=== PATIENT | female | born 1970 | race Hispanic/Latino ===

== ENCOUNTER 2017-03-17 23:51 | Observation (INO) | payer SELFPAY ==
[2017-03-18] MEDS ORDERED: Ondansetron HCl/PF 4 MG/2 ML Vial ONE ×2 (00:05→11:36)
[2017-03-18] MEDS ORDERED: Ketorolac Tromethamine 30 MG/ML VIAL ONE (00:05)
[2017-03-18 00:14] LABS: Bilirubin Small (Negative); Glucose, Urine (Dipstick) Negative (Negative); Ketone, Urine 40 mg/dL (Negative)
[2017-03-18 00:15] LABS: Blood, Urine Trace (Negative); Nitrite Negative (Negative); Protein, Urine (Dipstick) 30 mg/dL (Neg-Trace)
[2017-03-18 00:29] LABS: Bacteria/HPF Rare-Few HPF (None Seen); Hyaline Casts/LPF 4-6 HYALINE CAST LPF (0-3 Hyaline)
[2017-03-18 00:55] LABS: ALT (SGPT) 55 U/L (8-55); AST (SGOT) 33 U/L (5-34); Alkaline Phosphatase 116 U/L (40-150); Anion Gap 15 mmol/L (10-20); BUN (Urea Nitrogen) 16 mg/dL (7.0-18.7); Bilirubin, Total 0.6 mg/dL (0.2-1.2); Calc. Creatinine Clearance 0 mL/min (70-130); Carbon Dioxide 21 mmol/L (22-29); Chloride 105 mmol/L (98-107); Estimated GFR-MDRD 83; Globulin 3.6 g/dL (2.4-3.5); Lipase 14 U/L (8-78); Protein, Total 7.3 g/dL (6.0-8.3)
[2017-03-18 00:58] LABS: Renal Epithelial None Seen HPF (0-3); Transitional Epithelial NONE SEEN HPF (0-3); Yeast-All Forms None Seen HPF (None Seen)
[2017-03-18 00:59] LABS: Oval Fat Bodies/HPF None Seen HPF (None Seen); Sperm/HPF None Seen HPF (None Seen); Trichomonas/HPF None Seen HPF (None Seen)
[2017-03-18] MEDS ORDERED: Meropenem 1 GM in Sodium Chloride 0.9% 100 ML IVPB SCH (01:00)
[2017-03-18 01:07] LABS: #Eosinphils 0.2 thou/uL (0.0-0.7); #Lymphocytes 1.5 thou/uL (1.20-3.40); #Monocytes 0.7 thou/uL (0.11-0.59); #Neutrophils 9.9 thou/uL (1.40-6.50); %Basophils 0.1 % (0.0-1.0); %Eosinophils 1.4 % (0.0-10.0); %Lymphocytes 12.5 % (21.0-51.0); %Monocytes 5.4 % (0.0-10.0); Hematocrit 34.4 % (36.0-47.0); Red Blood Cell (RBC) Count 3.93 mill/uL (4.20-5.40); White Blood Cell (WBC) Count 12.3 thou/uL (4.8-10.8)
[2017-03-18] MEDS ORDERED: Ondansetron HCl/PF 4 MG/2 ML Vial IVP PRN ×3 (02:01→13:10)
[2017-03-18] MEDS ORDERED: Sodium Chloride 0.9% 1,000 ML IV SCH ×3 (02:01→13:10)
[2017-03-18 02:18] VITALS: BMI 34.4
[2017-03-18] MEDS ORDERED: Ketorolac Tromethamine 30 MG/ML VIAL IVP PRN ×2 (02:39→13:10)
[2017-03-18] MEDS ORDERED: Ketorolac Tromethamine 30 MG/ML VIAL IVP SCH (06:00)
--- NOTE | 2017-03-18 08:04 | HP ---
CHIEF COMPLAINT: Lower abdominal pain. HISTORY OF PRESENT ILLNESS: This is a 47-year-old female who presents with pain which is d escribed as sharp and severe in the lower abdomen, right lower quadrant, started yesterday. Seen in the emergency department overnight where CT scan reveals acute appendicitis. She notes nausea, but no vomiting, no fevers or chills, no dysuria. No history of chronic abdominal pain or inflammatory bowel disease. Nothing makes the pain better. PAST MEDICAL HISTORY: She denies. PAST SURGICAL HISTORY: She denies. MEDICINES TAKEN DAILY: None. ALLERGIES: No known drug allergies. SOCIAL HISTORY: No smoking, alcohol or other drugs. REVIEW OF SYSTEMS: Ten system review of systems otherwise negative as described above. PHYSICAL EXAMINATION: VITAL SIGNS: Temperature 99.9, pulse 85, respirations 18, blood pressure 115/56. HEENT: Sclerae are anicteric. Oropharynx clear. NECK: No lymphadenopathy. CHEST: Clear. HEART: Regular rate and rhythm. ABDOMEN: Soft with tenderness in the right lower quadrant with localized guarding. No abdominal or inguinal hernias. EXTREMITIES: No ischemia or edema to extremities. LABORATORY DATA AND IMAGING: White blood cell count is 12, hemoglobin 11, platelet count is 295. S odium 137, potassium 3.7, creatinine 0.74. Liver function tests normal. CT scan reveals acute appe ndicitis. ASSESSMENT: Acute appendicitis. PLAN: Laparoscopic appendectomy. Risks, benefits, alternatives discussed. She gives consent. We will do this today.
--- NOTE | 2017-03-18 08:13 | CT ---
PRELIMINARY REPORT/[facility]/EMERGENCY AFTER HOURS PROCEDURE: Addendum created by Armin James MD on 03/18/2017 12:46 AM Central Time ([place] \T\ Tru) Findings discussed with JESUS OTTO MD at time of interpretation. Initial Report created on 03/18/2017 12:44 AM Central Time ([place] \T\ Tru) EXAM: CT Abdomen and Pelvis With Intravenous Contrast EXAM DATE/TIME: Exam ordered 03/18/2017 12:26 AM CLINICAL HISTORY: 47 years old, female; Pain; Abdominal pain; Localized; Right lower quadrant (rlq); Prior surgery; Frances rgery type: Tubal ligation; Patient HX: Er 5; 47 yo f presents to ed C/O abdominal pain that started at 1400 today, worsened at 1900. Pt states that pain started in whole abdomen and localized to rlq as pain worsened. Pt reports nausea, denies vomiting. Also reports ntermittent diarrhea as well as s ome constipation and chills. Denies fever. Denies back pain. Tubal ligation TECHNIQUE: Axial computed tomography images of the abdomen and pelvis with intravenous contrast. Coronal reformatted images were created and reviewed. CONTRAST: 95 mL of isovue 370 administered intravenously. COMPARISON: No relevant prior studies available. FINDINGS: Lower thorax: No acute findings. ABDOMEN: Liver: Unremarkable. No mass. Gallbladder and bile ducts: Unremarkable. No calcified stones. No ductal dilation. Pancreas: Unremarkable. No mass. No ductal dilation. Spleen: Unremarkable. No splenomegaly. Adrenals: Unremarkable. No mass. Kidneys and ureters: Unremarkable. No solid mass. No hydronephrosis. Stomach and bowel: Unremarkable. No obstruction. No mucosal thickening. Appendix: The appendix is fluid-filled and dilated to 1.5 cm in caliber with obstructing appendicoli th and periappendiceal inflammation, consistent with acute appendicitis. PELVIS: Bladder: Unremarkable. No mass. Reproductive: Bilateral tubal ligation clips present. Uterus and ovaries are unremarkable. ABDOMEN and PELVIS: Intraperitoneal space: No pneumoperitoneum or abscess. No significant fluid collection. Bones/joints: No acute fracture. No dislocation. Soft tissues: Unremarkable. Vasculature: Unremarkable. No abdominal aortic aneurysm. Lymph nodes: Unremarkable. No enlarged lymph nodes. IMPRESSION: Acute appendicitis. Thank you for allowing us to participate in the care of your patient. Dictated and Authenticated by: Armin James MD 03/18/2017 12:44 AM Central Time ([place] \T\ Tru) FINAL REPORT CT ABDOMEN AND PELVIS WITH IV CONTRAST: Date: 03/18/17 FINDINGS/IMPRESSION: I agree with the preliminary report given by Dr. Armin James of [facility]. POS: [facility]
[2017-03-18] MEDS ORDERED: Meropenem 2 GM, Admixture Fee 1 EACH in Sodium Chloride 0.9% 100 ML IVPB SCH (09:00)
[2017-03-18] MEDS ORDERED: Bupivacaine HCl 0.5%/Epinephrine 1:200,000/PF 30 ml Vial ONE (11:09)
[2017-03-18] MEDS ORDERED: Fentanyl 100 MCG/2 ML VIAL ONE (11:30)
[2017-03-18] MEDS ORDERED: Dexamethasone 20 MG/5 ML VIAL ONE (11:36)
[2017-03-18] MEDS ORDERED: Glycopyrrolate 0.2 MG/ML 5 ML SYRINGE ONE (11:36)
[2017-03-18] MEDS ORDERED: Succinylcholine Chloride 20 MG/ML 10 ml SYRINGE FS ONE (11:36)
[2017-03-18] MEDS ORDERED: Propofol 200 MG/20 ML VIAL ONE (11:36)
[2017-03-18] MEDS ORDERED: ePHEDrine/0.9% NaCl/PF SYRINGE 50 mg/10 ml ONE (11:36)
[2017-03-18] MEDS ORDERED: Lidocaine 1% PF 5 ML VIAL ONE (11:36)
[2017-03-18] MEDS ORDERED: Meperidine HCl/PF 25 MG/ML VIAL SLOW IVP PRN (12:03)
[2017-03-18] MEDS ORDERED: Promethazine HCl 25 MG/ML VIAL SLOW IVP PRN (12:03)
[2017-03-18 13:10] VITALS: BP 105/58; TEMP 98.4
[2017-03-18] MEDS ORDERED: Dextrose 5% in Water 1,000 ML IV PRN (13:10)
[2017-03-18] MEDS ORDERED: Promethazine HCl 25 MG/ML VIAL IM PRN (13:10)
[2017-03-18] MEDS ORDERED: Dextrose 50% Abboject 50 ML SYRINGE SLOW IVP PRN (13:10)
[2017-03-18] MEDS ORDERED: Morphine Sulfate 2 MG/ML SYRINGE SLOW IVP PRN (13:10)
[2017-03-18] MEDS ORDERED: HYDROcodone/Acetaminophen 10/325 mg Tablet PO PRN ×2 (13:10)
[2017-03-18] MEDS ORDERED: ISOVUE-370 76%-LOCM 1 ML ONE (13:39)
[2017-03-18] MEDS ORDERED: Famotidine 20 MG TAB PO SCH (21:00)
[2017-03-18] MEDS ORDERED: Famotidine/PF 20 mg/2ml Vial SLOW IVP SCH (21:00)
--- NOTE | 2017-03-19 12:11 | DIS ---
DATE OF ADMISSION: 03/17/2017 DATE OF DISCHARGE: 03/18/2017 ADMITTING DIAGNOSIS: Acute appendicitis. DISCHARGE DIAGNOSIS: Acute appendicitis. PROCEDURES: Laparoscopic appendectomy by Dr. Dunbar without complication. CONDITION AT DISCHARGE: Improved. STAFF: Dr. Torin Dunbar. HOSPITAL COURSE: See hospital chart for details of hospitalization.
--- NOTE | 2017-03-19 12:11 | OP ---
DATE OF PROCEDURE: 03/18/2017 PREOPERATIVE DIAGNOSIS: Acute appendicitis. POSTOPERATIVE DIAGNOSIS: Acute appendicitis. PROCEDURE PERFORMED: Laparoscopic appendectomy. SURGEON: Emily Dunbar ANESTHESIA: General. ESTIMATED BLOOD LOSS: Minimal. COMPLICATIONS: None. SPECIMEN: Appendix. FINDINGS: Appendicitis. TECHNIQUE: The patient was taken to the operating room and placed supine on the table. After gener al anesthetic was obtained, a Franz was placed. Abdomen was shaved, prepped and draped in a sterile fashion. Curved incision made below the umbilicus. Cautery was used to dissect down to and score the fascia. Abdominal cavity was entered bluntly using a Jayleen clamp. Holding stitch of PDS was pl aced on each side of the fascia. Humphreys trocar was placed. High-flow pneumoperitoneum was obtained . A suprapubic and left lower quadrant 5-mm port were placed under direct visualization. The cecum was rolled over to reveal acute appendicitis. A small window was made at the base of the appendix and the mesoappendix. Laparoscopic stapler fired across the base of the appendix. A vascular reloa d fired across the mesoappendix. Appendix was placed in an Endo catch bag and brought out through t he Humphreys. There was no bleeding in the right lower quadrant and there was no evidence of perforati on. The right lower quadrant and pelvis was irrigated using sterile solution until returns were francis ar. All port sites were infiltrated using local anesthetic. All ports were removed under camera vi sualization without bleeding. Pneumoperitoneum was let down. PDS was used to close the fascial def ect below the umbilicus. All incisions were irrigated and closed using 4-0 Monocryl and Dermabond. The patient was en route to recovery in stable condition. All instrument counts, needle counts, an d lap counts were correct.
== END 2017-03-18 16:58 | disposition home or self-care (01) ==
LOC: ERS 23:51 → 2SW 03-18 01:50
PROVIDERS: ADMIT Surgery; ATTEND Surgery
PROC: 0DTJ4ZZ Resection of Appendix, Percutaneous Endoscopic Approach (ICD-10-PCS; principal; 2017-03-18)
DX: K35.3 Acute appendicitis with localized peritonitis (principal)
CPT/HCPCS: 36415; 74177; 80053; 81003; 81015; 81025; 83690; 85025; 87086; 88304; 96361; 96365; 96367; 96375; G0378; J0131; J0670; J0694; J1100; J1885; J2001; J2185; J2270; J2405; J2704; J3010; J7050

== ENCOUNTER 2018-11-09 12:35 | Inpatient (IN) | payer SELFPAY ==
[~2018-11-09 12:35] MED LIST: Dexamethasone 20 MG/5 ML VIAL ONE; Ketorolac Tromethamine 30 MG/ML VIAL ONE; Lidocaine 2% PF 5 ML VIAL ONE; Ondansetron PF 4 MG/2 ML Vial ONE; PHENYLEPHRINE-NS 100 MCG/ML 10 ML SYRINGE ONE; PROPOFOL 200 MG/20 ML VIAL ONE; Rocuronium Bromide 10 MG/ML (10ML VIAL) ONE; Succinylcholine Chloride 20 MG/ML 10 ml SYRINGE FS ONE
[2018-11-09 12:54] LABS: #Eosinphils 0.2 thou/uL (0.0-0.7); #Lymphocytes 1.2 thou/uL (1.20-3.40); #Monocytes 0.3 thou/uL (0.11-0.59); #Neutrophils 2.9 thou/uL (1.40-6.50); %Basophils 0.4 % (0.0-1.0); %Eosinophils 3.3 % (0.0-10.0); %Lymphocytes 26.2 % (21.0-51.0); %Monocytes 7.3 % (0.0-10.0); %Neutrophils 62.7 % (42.0-75.0); Hemoglobin 12.5 g/dL (12.0-16.0); Mean Corpuscular HGB CONC 33.7 g/dL (32.0-36.0); Mean Corpuscular Hemoglobin 29.5 pg (27.0-31.0); Mean Corpuscular Volume 87.5 fL (78.0-98.0); Platelet Count 262 thou/uL (130-400); RBC Distribution Width 11.5 % (11.5-14.5); Red Blood Cell (RBC) Count 4.22 mill/uL (4.20-5.40); White Blood Cell (WBC) Count 4.5 thou/uL (4.8-10.8)
[2018-11-09] MEDS ORDERED: Morphine 4 MG/ML VIAL ONE (13:09)
--- NOTE | 2018-11-09 13:11 | ULT ---
Gallbladder ultrasound: Multiple grayscale images of right upper quadrant obtained according to protocol. INDICATIONS: Right upper quadrant pain. FINDINGS: Numerous echogenic gallstones are seen within the gallbladder. Echogenic sludge. Nonmobile gallstone in the gallbladder neck. Technologist describes a positive Martinez's sign. Common bile duct is normal caliber. Liver is echogenic consistent with fatty infiltration. Pancreas is mostly obscured but appears unremarkable as visualized. Right kidney is imaged and appears unremarkable. IMPRESSION: 1. Cholelithiasis. Positive Martinez's. 2. Hepatic steatosis
[2018-11-09 13:16] LABS: ALT (SGPT) 211 U/L (8-55); AST (SGOT) 114 U/L (5-34); Albumin 3.9 g/dL (3.5-5.0); Alkaline Phosphatase 152 U/L (40-150); Anion Gap 14 mmol/L (10-20); BUN (Urea Nitrogen) 6 mg/dL (7.0-18.7); Bilirubin, Total 3.5 mg/dL (0.2-1.2); Calc. Creatinine Clearance 0 mL/min (70-130); Calcium 9.6 mg/dL (7.8-10.44); Carbon Dioxide 20 mmol/L (22-29); Chloride 107 mmol/L (98-107); Estimated GFR-MDRD 86; Globulin 3.9 g/dL (2.4-3.5); Glucose 109 mg/dL (70-105); Lipase 40 U/L (8-78); Potassium 3.6 mmol/L (3.5-5.1); Protein, Total 7.8 g/dL (6.0-8.3); Sodium 137 mmol/L (136-145)
[2018-11-09] MEDS ORDERED: Glycopyrrolate 0.2 MG/ML 5 ML SYRINGE SLOW IVP SCH (13:30)
[2018-11-09] MEDS ORDERED: cefOXitin 2 GM VIAL ONE (13:47)
[2018-11-09] MEDS ORDERED: Fentanyl 100 MCG/2 ML VIAL ONE (14:31)
[2018-11-09] MEDS ORDERED: Iothalamate Meglumine 60% 50 ML VIAL FS ONE ×2 (14:36→16:11)
[2018-11-09] MEDS ORDERED: Bupivacaine/Epinephrine 0.25% 30 ML VIAL ONE (14:36)
[2018-11-09] MEDS ORDERED: Promethazine HCl 25 MG/ML VIAL IM PRN (14:56)
[2018-11-09] MEDS ORDERED: Ondansetron HCl/PF 4 MG/2 ML Vial IVP PRN (14:56)
[2018-11-09] MEDS ORDERED: Promethazine HCl 25 MG/ML VIAL SLOW IVP PRN (14:56)
[2018-11-09] MEDS ORDERED: Levofloxacin 500 mg/D5W 100 ml Premix Bag ONE (17:44)
--- NOTE | 2018-11-09 18:18 | RAD ---
ERCP: A single image from ERCP procedure presented. Indication: Image during ERCP, follow up cholecystectomy. FINDINGS: The single image shows opacification of the common duct. Portions of the common duct are obscured. Th e pancreatic duct is also imaged but partially obscured. No definite filling defect identified. POS: [facility]
--- NOTE | 2018-11-09 19:23 | HP ---
CHIEF COMPLAINT: Abdominal pain. HISTORY OF PRESENT ILLNESS: A 48-year-old female who presents with a history of epigastric right upper quadrant pain, described as sharp, 8/10, radiates around to her right back. It has been going on for 2 days. Pain is associated with nausea, no vomiting, associated with anorexia. No history of chronic abdominal pain. No past known history of gallstones, jaundice, or pancreatitis. PAST MEDICAL HISTORY: Negative. PAST SURGICAL HISTORY: Includes appendectomy and tubal ligation. MEDICATIONS TAKEN DAILY: None. ALLERGIES: NO KNOWN DRUG ALLERGIES. SOCIAL HISTORY: No smoking, alcohol, or other drugs. REVIEW OF SYSTEMS: Ten-system review of systems is otherwise negative unless described above. PHYSICAL EXAMINATION: VITAL SIGNS: Blood pressure 144/83, pulse 75, respirations 17, and she is afebrile. HEENT: Sclerae anicteric. Oropharynx clear. NECK: No lymphadenopathy. CHEST: Clear. HEART: Regular rate and rhythm. ABDOMEN: Soft. Tender in the epigastric, tender in the right upper quadrant with localized guarding without rebound. No abdominal or inguinal hernias. EXTREMITIES: No ischemia or edema to extremities. LABORATORY DATA: White blood cell count is 4, hemoglobin 12, and platelet count is 262. Sodium 137, potassium 3.6, creatinine 0.7, bilirubin 3.5, AST and ALT are 114 and 211, alkaline phosphatase 152, and her lipase is 40. Ultrasound shows a dilated common bile duct and gallstones. ASSESSMENT: Acute cholecystitis with elevation of liver tests including bilirubin. PLAN: Laparoscopic cholecystectomy with intraoperative cholangiogram, likely postop ERCP. Dr. Escobar was seen as well. Risks, benefits, and alternatives to discuss via windows desktop support phone including bleeding, infection, scarring, perforation, and pancreatitis. She does give consent. We will do this today. Job ID: [id number]
[2018-11-09] MEDS ORDERED: Ondansetron PF 4 MG/2 ML Vial IVP PRN (19:49)
[2018-11-09] MEDS: Lactated Ringer's 1,000 ML IV SCH (20:59)
[2018-11-09] MEDS: Morphine 2 MG/ML SYRINGE SLOW IVP PRN (21:06)
--- NOTE | 2018-11-09 21:13 | OP ---
DATE OF PROCEDURE: 11/09/2018 PREOPERATIVE DIAGNOSIS: Cholecystitis. POSTOPERATIVE DIAGNOSES: Cholecystitis and choledocholithiasis. PROCEDURE PERFORMED: Laparoscopic cholecystectomy. ANESTHESIA: General. ESTIMATED BLOOD LOSS: Minimal. COMPLICATIONS: None. SPECIMEN: Gallbladder findings, positive cholangiogram. PROCEDURE IN DETAIL: The patient was taken to the operating room and laid supine on the operating room table. After general anesthetic was obtained, the abdomen was prepped and draped in a sterile fashion. A curved incision was made below the umbilicus. Cautery was used to dissect down to the umbilical fascia. Umbilical fascia was incised and held up using a Maurisio. The abdominal cavity was entered using a Jayleen clamp. Holding stitch of Vicryl was placed on each side of the fascia. Humphreys trocar was placed. High-flow pneumoperitoneum was obtained. An upper midline 5 mm port and 2 right upper quadrant 5 mm ports were placed under direct camera visualization. The gallbladder was retracted from the gallbladder fossa. The peritoneum of the gallbladder was opened anteriorly and posteriorly. The critical view triangle was seen showing only the cystic duct and cystic artery branching from medial to lateral. There were no other branching structures. Two clips were placed proximally on the cystic duct and one laterally. It was cut using laparoscopic scissors. The cystic artery was taken in the same way. Electrocautery was then used to dissect the gallbladder out of the gallbladder fossa. The gallbladder was placed in an Endo catch bag and brought out through the Humphreys. There was no bleeding or bile in the liver bed. The cystic duct stump and cystic artery stump were intact, without evidence of extravasation or bleeding. All port sites were infiltrated using local anesthesia. All ports were removed under camera visualization. Pneumoperitoneum was let down. The Vicryl was used to close the fascial defect below the umbilicus. All incisions were irrigated and closed using 4-0 Monocryl and Dermabond. Prior to ligating the cystic duct, a cholangiocatheter was brought in through a separate stab incision, placed in the cystic duct and cholangiogram was performed, which shows no contrast flow into the duodenum. There was a mid common bile duct stone. Cholangiocatheter was removed and the cystic duct was clipped proximally using three laparoscopic clips. The patient was sent to Recovery in stable condition. All instrument counts, needle counts, and lap counts were correct. Job ID: [id number]
--- NOTE | 2018-11-09 21:18 | CON ---
DATE OF CONSULTATION: HISTORY OF PRESENT ILLNESS: Ms. Powell is a 48-year-old female, came to the emergency room today with complaints of 3 days of right upper quadrant pain with vomiting. Intermittently, she has had some pain in the past. She had normal CBCs. She had a comprehensive metabolic profile that showed a bilirubin of 3.5, AST and ALT of 114 and 211, and alkaline phosphatase of 152. Her lipase was normal. She had an ultrasound that ultimately showed cholelithiasis and hepatic steatosis, her common duct was not commented on. She is going to go have a laparoscopic cholecystectomy and Dr. Dunbar asked to see her beforehand, and we talked about ERCP, but she is [place], which Dr. Dunbar helped me to translate. PAST MEDICAL HISTORY: Negative. PAST SURGICAL HISTORY: Appendectomy and tubal ligation. SOCIAL HISTORY: Negative for all drugs and tobacco. HOME MEDICATIONS: None. ALLERGIES: NONE. PHYSICAL EXAMINATION: VITAL SIGNS: Blood pressure 144/83, pulse 75, respiratory rate of 16, temperature 98. GENERAL: She is resting comfortably in bed. She is [place]-speaking only. We were able to speak with her in [place] through a translation rell. LUNGS: Clear. ABDOMEN: Soft and nontender without rebound or guarding. ASSESSMENT: Cholelithiasis, possible choledocholithiasis based on LFTs. She has received Mefoxin in the preoperative area, morphine, and a liter of saline. PLAN: Laparoscopic cholecystectomy with IOC. If this is positive, she would need ERCP, we can do that under same anesthetic. The risks, benefits, and possible complications of ERCP including perforation, bleeding, reaction to medication, aspiration, pancreatitis all discussed with the patient in [place]. Job ID: [id number]
--- NOTE | 2018-11-09 21:41 | OP ---
DATE OF PROCEDURE: 11/09/2018 PREPROCEDURE DIAGNOSIS: The patient was seen earlier in consultation today for possible choledocholithiasis. She was going to the operating room. In the operating room, her IOC showed a filling defect in the mid common bile duct, which tended to float up and down. It was interpreted as choledocholithiasis in light of her LFTs were elevated on presentation. ANESTHESIA: General endotracheal anesthesia. ANTIBIOTICS: Levaquin 500 mg IV once. POSTPROCEDURE DIAGNOSIS: A cholangiogram was able to be obtained on this patient, but deep cannulation was not, it showed a tortuous distal duct, but no overt filling defects were seen, portion of the common duct was obscured on the plain films there were no overt filling defects seen sphincterotomy and swept the duct empirically based on the IOC findings, but we could not get deep cannulation. There was a single injection performed at the PD, which appeared normal, but no further injections of PD were performed. RECOMMENDATIONS: Observe liver function test. If they did not come down on their own, the patient will need a repeat ERCP. PROCEDURE IN DETAIL: The patient was informed of the risks, benefits, and possible complications of endoscopy including perforation, reaction to medication, aspiration, informed consent was obtained. Once I was called from the operating room regarding findings of positive IOC, she was brought to the fluoroscopy suite. She was placed in a prone position on the table. The side-viewing duodenum scope was then advanced to the esophagus, stomach, and second and third portion of the duodenum, and the ampulla was brought into view. There was clear bile emanating from it. Multiple attempts at free cannulation of the common duct were unsuccessful, cannulating with the guidewire was unsuccessful ultimately. We were able to get some cannulation and get an injection of the common bile duct with an appearance of a tortuous distal common bile duct, but no overt dilatation of biliary tree and normal intrahepatic ducts with no filling defects seen in the common bile duct. Despite getting this cannulation, we were unable to get deep cannulation, was not able to get a wire up or the catheter up into the more proximal duct. On the fluoroscopic images, the common bile duct lumen was corkscrew in appearance. We did attempt to straighten the ampulla and cannulate again, but we were unsuccessful with multiple attempts. There was a brief injection of the pancreatic duct, but no other injections were performed on that. The duct was noted and drained spontaneously. There was a stone noted in the duodenum and I am not sure this was forced through from her IOC. We did not see it passed spontaneously and it was a fairly decent size, and I would not think it would pass pass spontaneously. In any event, with multiple attempts again to cannulate being unsuccessful, we went ahead and terminated the procedure to minimize risk of pancreatitis. The scope was removed. The patient was brought to recovery room in stable condition, she was over there for some time. She was doing well without complaints. No signs of cholangitis, fever, or pain. We will repeat her labs in the morning and continue to put on the fluoroquinolone. Job ID: [id number]
[2018-11-09 23:36] VITALS: BMI 32.5
[2018-11-10] MEDS: Lactated Ringer's 1,000 ML IV SCH ×4 (02:07→20:07)
[2018-11-10 06:33] LABS: #Lymphocytes 0.8 thou/uL (1.20-3.40); #Monocytes 0.5 thou/uL (0.11-0.59); #Neutrophils 9.8 thou/uL (1.40-6.50); %Basophils 0.1 % (0.0-1.0); %Eosinophils 0.1 % (0.0-10.0); %Lymphocytes 7.4 % (21.0-51.0); %Monocytes 4.7 % (0.0-10.0); %Neutrophils 87.7 % (42.0-75.0); Hemoglobin 11.5 g/dL (12.0-16.0); Mean Corpuscular HGB CONC 33.4 g/dL (32.0-36.0); Mean Corpuscular Hemoglobin 29.6 pg (27.0-31.0); Mean Corpuscular Volume 88.6 fL (78.0-98.0); Mean Platelet Volume 7.5 fL (7.4-10.4); Platelet Count 258 thou/uL (130-400); RBC Distribution Width 11.5 % (11.5-14.5); Red Blood Cell (RBC) Count 3.89 mill/uL (4.20-5.40); White Blood Cell (WBC) Count 11.1 thou/uL (4.8-10.8)
[2018-11-10 07:00] LABS: ALT (SGPT) 168 U/L (8-55); AST (SGOT) 78 U/L (5-34); Albumin 3.4 g/dL (3.5-5.0); Alkaline Phosphatase 126 U/L (40-150); Anion Gap 14 mmol/L (10-20); BUN (Urea Nitrogen) 7 mg/dL (7.0-18.7); Calc. Creatinine Clearance 115 mL/min (70-130); Calcium 9.1 mg/dL (7.8-10.44); Carbon Dioxide 21 mmol/L (22-29); Chloride 107 mmol/L (98-107); Estimated GFR-MDRD 89; Globulin 3.6 g/dL (2.4-3.5); Glucose 130 mg/dL (70-105); Lipase 698 U/L (8-78); Potassium 3.8 mmol/L (3.5-5.1); Sodium 138 mmol/L (136-145)
--- NOTE | 2018-11-10 07:19 | RAD ---
INTRAOPERATIVE CHOLANGIOGRAM: DATE: 11/09/2018. HISTORY: Cholecystectomy. FINDINGS/IMPRESSION: Single fluoroscopic image of the right upper quadrant is submitted for interpretation. The cystic du ct is cannulated. Contrast is seen within the distal common duct distal to the level of the cystic d uct with evidence of free spill of contrast into the duodenum. No filling defect is seen to suggest a calculus. However, the common duct proximal to the level of the cystic duct as well as intrahepati c ducts are not opacified on this exam. Correlation with intraoperative findings is recommended. FLUOROSCOPY: Total fluoroscopy time is 29 seconds with total dose of 5.25 mGy. POS: [facility]
[2018-11-10] MEDS: Morphine 2 MG/ML SYRINGE SLOW IVP PRN ×3 (08:47→22:50)
--- NOTE | 2018-11-10 11:28 | PDOC.GSPN ---
Surgery Progress Note: Subj - Subjective Patient reports: no new complaints, tolerating liquids well Surgery Progress Note: Obj - Vital signs Vital signs: Vital Signs - Most Recent Temp Pulse Resp BP Pulse Ox 98.1 F 81 14 119/75 97 11/10/18 07:36 11/10/18 07:36 11/10/18 07:36 11/10/18 07:36 11/10/18 07:36 - Physical Exam General: no distress Cardiovascular: regular rate and rhythm Respiratory: clear to auscultation Abdomen: soft, appropriately tender Wound: healing well Surgery Progress Note: Results - Labs Result Diagrams: 11/10/18 06:18 11/10/18 06:18 Lab results: Laboratory Results - last 24 hr 11/10/18 11/10/18 06:18 06:18 WBC 11.1 H RBC 3.89 L Hgb 11.5 L Hct 34.5 L MCV 88.6 MCH 29.6 MCHC 33.4 RDW 11.5 Plt Count 258 MPV 7.5 Neutrophils % 87.7 H Lymphocytes % 7.4 L Monocytes % 4.7 Eosinophils % 0.1 Basophils % 0.1 Neutrophils # 9.8 H Lymphocytes # 0.8 L Monocytes # 0.5 Eosinophils # 0.0 Basophils # 0.0 Sodium 138 Potassium 3.8 Chloride 107 Carbon Dioxide 21 L Anion Gap 14 BUN 7 Creatinine 0.70 Estimated GFR (MDRD) 89 Glucose 130 H Calcium 9.1 Total Bilirubin 2.0 H AST 78 H ALT 168 H Alkaline Phosphatase 126 Serum Total Protein 7.0 Albumin 3.4 L Globulin 3.6 H Albumin/Globulin Ratio 0.9 L Lipase 698 H Surgery Progress Note: A/P - Problem (1) Cholecystitis Current Visit: Yes Code(s): K81.9 - CHOLECYSTITIS, UNSPECIFIED Status: Acute - Plan Plan: Post ERCP mild pancreatitis -recheck labs later -may let tbili trend down on its own.
[2018-11-10 12:14] LABS: ALT (SGPT) 158 U/L (8-55); AST (SGOT) 67 U/L (5-34); Albumin 3.5 g/dL (3.5-5.0); Alkaline Phosphatase 127 U/L (40-150); Bilirubin, Direct 1.3 mg/dL (0.1-0.3); Bilirubin, Total 1.9 mg/dL (0.2-1.2); Lipase 986 U/L (8-78)
--- NOTE | 2018-11-10 12:23 | PRG ---
DATE OF SERVICE: 11/10/2018 SUBJECTIVE: Ms. Gutiérrez had a difficult ERCP yesterday. We were able to get a cholangiogram, which showed no overt filling defects, no spontaneous drainage of contrast, but we were able to get a wire up, but not a catheter up to perform sphincterotomy and perform a balloon sweeping of the duct as she reportedly had a positive IOC in surgery. She has had some abdominal pain this morning and a lipase of 600, it was consistent with pancreatitis. OBJECTIVE: VITAL SIGNS: Temperature 98, T-max 99.8 yesterday, pulse 81, blood pressure 119/75. LUNGS: Clear. HEART: Regular rate and rhythm without clicks, rubs, or murmurs. ABDOMEN: Soft. There is epigastric tenderness with guarding, but no rebound. Bowel sounds are quiescent. LABORATORY DATA: White count 11.1, up from 4.5, hemoglobin is 11.5 down from 12.5, platelet count is 258. Electrolytes normal with a BUN and creatinine of 7 and 0.7, glucose 130. Bilirubin was down to 2 from 3.5. AST and ALT are 78, 168, down from 114 and 211. Alkaline phosphatase is 127 down from 152. Her lipase preop yesterday was 40 and today is 98. ASSESSMENT: 1. Choledocholithiasis noted at the time of IOC, none identified at ERCP; however, it is a difficult procedure. Her LFTs are improving. We will continue to trend, and if they go back to normal, would not re-embark on ERCP. If they bout back up, she may need an ERCP after her pancreatitis resolved. 2. Mild post endoscopic retrograde cholangiopancreatography pancreatitis. RECOMMENDATIONS: Would be to continue IV fluids. Keep her on just ice chips, and we will recheck her labs later today and again tomorrow. Job ID: [id number]
[2018-11-11] MEDS: Lactated Ringer's 1,000 ML IV SCH ×3 (02:59→20:27)
[2018-11-11] MEDS: Morphine 2 MG/ML SYRINGE SLOW IVP PRN (04:33)
[2018-11-11 06:35] LABS: ALT (SGPT) 120 U/L (8-55); AST (SGOT) 46 U/L (5-34); Albumin 3.3 g/dL (3.5-5.0); Alkaline Phosphatase 128 U/L (40-150); Anion Gap 14 mmol/L (10-20); BUN (Urea Nitrogen) 7 mg/dL (7.0-18.7); Bilirubin, Total 1.4 mg/dL (0.2-1.2); Calc. Creatinine Clearance 126 mL/min (70-130); Calcium 8.9 mg/dL (7.8-10.44); Carbon Dioxide 21 mmol/L (22-29); Chloride 102 mmol/L (98-107); Estimated GFR-MDRD Greater than 90; Globulin 3.5 g/dL (2.4-3.5); Glucose 74 mg/dL (70-105); Lipase 530 U/L (8-78); Potassium 3.2 mmol/L (3.5-5.1); Protein, Total 6.8 g/dL (6.0-8.3); Sodium 134 mmol/L (136-145)
[2018-11-11 06:41] LABS: Band 5 % (5-11); Hemoglobin 11.4 g/dL (12.0-16.0); Hypochromia SLIGHT = 6-15 cells (100X) (0-5/hpf); Lymphocytes 21 % (21-51); MDiff Complete? YES; Mean Corpuscular HGB CONC 34.2 g/dL (32.0-36.0); Mean Corpuscular Hemoglobin 30.3 pg (27.0-31.0); Mean Corpuscular Volume 88.4 fL (78.0-98.0); Mean Platelet Volume 7.9 fL (7.4-10.4); Monocytes 3 % (0-10); Neutrophil 71 % (42-75); Platelet Count 238 thou/uL (130-400); Platelet Morphology Comment Appears Adequate; RBC Distribution Width 11.4 % (11.5-14.5); Red Blood Cell (RBC) Count 3.76 mill/uL (4.20-5.40); White Blood Cell (WBC) Count 8.5 thou/uL (4.8-10.8)
--- NOTE | 2018-11-11 10:43 | PRG ---
DATE OF SERVICE: 11/11/2018 SUBJECTIVE: She states that she has less pain. No nausea. OBJECTIVE: VITAL SIGNS: She is afebrile. Vital signs are stable. ABDOMEN: Appropriately tender around her incisions. No distention. Her wounds are healing well. LABORATORY DATA: Her bilirubin is trending down to 1.4. Her lipase is down into the 500s today. ASSESSMENT: Cholecystitis, choledocholithiasis, may have passed the stone, post-ERCP pancreatitis. PLAN: We will offer clears today if okay with Dr. Escobar. Her labs are trending down. She may not need repeat ERCP. Job ID: [id number]
[2018-11-11] MEDS: Acetaminophen 1,000 MG in Premix Bag 1 BAG IVPB SCH ×2 (11:43→20:29)
[2018-11-12] MEDS: Acetaminophen 1,000 MG in Premix Bag 1 BAG IVPB SCH ×2 (03:07→09:57)
[2018-11-12 08:02] LABS: ALT (SGPT) 100 U/L (8-55); AST (SGOT) 40 U/L (5-34); Albumin 3.5 g/dL (3.5-5.0); Alkaline Phosphatase 139 U/L (40-150); Bilirubin, Direct 0.6 mg/dL (0.1-0.3); Bilirubin, Total 1.3 mg/dL (0.2-1.2); Lipase 132 U/L (8-78); Protein, Total 7.3 g/dL (6.0-8.3)
--- NOTE | 2018-11-12 12:48 | PRG ---
DATE OF SERVICE: 11/12/2018 SUBJECTIVE: Ms. Gutiérrez feels better today. No nausea. Her pain is much improved. She is afebrile and her vital signs are stable. Her liver function tests, her bilirubin is down to 1.3. AST and ALT are 40 and 100. Her lipase is down to 132. ASSESSMENT: Status post laparoscopic cholecystectomy with cholangiogram for cholecystitis, question of filling defect in the common bile duct, now with post ERCP pancreatitis, improved. PLAN: We will defer to Dr. Escobar. My plan was to advance her diet today, potentially discharge home tomorrow if no further procedures to be done. Job ID: [id number]
[2018-11-12] MEDS: Morphine 2 MG/ML SYRINGE SLOW IVP PRN ×2 (15:37→21:32)
[2018-11-12] MEDS: Lactated Ringer's 1,000 ML IV SCH (17:56)
[2018-11-13] MEDS: Morphine 2 MG/ML SYRINGE SLOW IVP PRN (06:43)
[2018-11-13] MEDS: Lactated Ringer's 1,000 ML IV SCH (06:46)
[2018-11-13 08:47] LABS: ALT (SGPT) 87 U/L (8-55); AST (SGOT) 40 U/L (5-34); Albumin 3.4 g/dL (3.5-5.0); Alkaline Phosphatase 146 U/L (40-150); Bilirubin, Direct 0.6 mg/dL (0.1-0.3); Lipase 69 U/L (8-78); Protein, Total 7.4 g/dL (6.0-8.3)
--- NOTE | 2018-11-13 09:38 | DIS ---
DATE OF ADMISSION: 11/09/2018 DATE OF DISCHARGE: 11/13/2018 ADMITTING DIAGNOSES: Cholecystitis, choledocholithiasis. DISCHARGE DIAGNOSES: Cholecystitis, choledocholithiasis. PROCEDURES: Laparoscopic cholecystectomy by Dr. Dunbar without complication. Endoscopic retrograde cholangiopancreatography without complication. HOSPITAL COURSE: The patient did develop post ERCP pancreatitis, although the ERCP was not able to be performed for stone extraction. There was a stone present on ERCP that could have been a passed stone. Her liver tests have trended down to near normal. Her lipase is normal. She is tolerating regular diet. She is discharged home today. She will follow up with me in the office in 2 weeks. She will follow up with Dr. Escobar in 2 weeks as well. Prescriptions for [place] and Zofran are on the chart. Job ID: [id number]
[2018-11-13 12:04] VITALS: BP 131/83; TEMP 99.4
== END 2018-11-13 12:25 | disposition home or self-care (01) | DRG 417 ==
LOC: ERS 12:35 → SDC 14:42 → SURG B 18:30
PROVIDERS: ADMIT Surgery; ATTEND Surgery
PROC: 0FT44ZZ Resection of Gallbladder, Percutaneous Endoscopic Approach (ICD-10-PCS; principal; 2018-11-09)
PROC: BF10YZZ Fluoroscopy of Bile Ducts using Other Contrast (ICD-10-PCS; 2018-11-09)
DX: K80.00 Calculus of gallbladder with acute cholecystitis without obstruction (principal); K85.90 Acute pancreatitis without necrosis or infection, unspecified; K91.89 Other postprocedural complications and disorders of digestive system; R63.0 Anorexia; Z90.49 Acquired absence of other specified parts of digestive tract; Z98.51 Tubal ligation status; Z68.32 Body mass index [BMI] 32.0-32.9, adult
CPT/HCPCS: 36415; 47532; 74330; 76705; 80053; 80076; 83690; 85007; 85025; 85027; 88304; 96361; 96374; 96375; C1769; J0131; J0694; J1100; J1885; J1956; J2001; J2270; J2405; J2704; J3010; Q9961

== ENCOUNTER 2020-12-23 15:49 | Outpatient (CLI) | payer OTHER | END 2020-12-23 15:50 | disposition home or self-care (01) | LOC: BICULT 15:49 → EDSTATUS 16:00 | PROVIDERS: ATTEND Nurse Practitioner Family | DX: R10.2 Pelvic and perineal pain (principal); D25.9 Leiomyoma of uterus, unspecified | CPT/HCPCS: 76856 ==

== ENCOUNTER 2022-12-28 09:41 | Emergency (ER) | payer BC ==
[2022-12-28] MEDS ORDERED: HYDROcodone/Acetaminophen 5/325 mg Tablet ONE (10:21)
[2022-12-28] MEDS ORDERED: Ketorolac Tromethamine 30 MG/ML VIAL ONE (10:21)
== END 2022-12-28 10:50 | disposition home or self-care (01) ==
LOC: ERS 09:41
DX: K08.89 Other specified disorders of teeth and supporting structures (principal)
CPT/HCPCS: 96372; 99282; J1885